=== PATIENT | female | born 1950 | race Caucasian/White ===

== ENCOUNTER 2017-10-10 05:31 | Day surgery (SDC) | payer OTHER, BC ==
[~2017-10-10] VITALS: Ht 162.6 cm; Wt 76.7 kg
[~2017-10-10 05:31] MED LIST: ACID CONTROL150 MG PO; AZULFIDINE500 MG PO; BLEPHAMIDE RIGHT EYE; DELTASONE DOSEPA5 MG PO; DETROL LA4 MG PO; LEVOTHROID,S0.175 M1 PO; ORENCIA250 MG/10 IV; SYNTHROID150 MCG PO; VIBRAMYCIN100 MG PO
[2017-10-10 06:40] VITALS: BP 157/72
[2017-10-10 09:25] VITALS: BP 169/76
[2017-10-10 09:57] VITALS: BP 150/72
== END 2017-10-10 10:00 | disposition home or self-care (01) ==
LOC: SDC 05:31
PROC: 08B43ZZ Excision of Right Vitreous, Percutaneous Approach (ICD-10-PCS; principal; 2017-10-10)
PROC: 08NE3ZZ Release Right Retina, Percutaneous Approach (ICD-10-PCS; principal; 2017-10-10)
DX: H35.81 Retinal edema (principal); H35.371 Puckering of macula, right eye; E78.5 Hyperlipidemia, unspecified; M06.9 Rheumatoid arthritis, unspecified; E03.9 Hypothyroidism, unspecified
CPT/HCPCS: J0690; J0713; J3300